=== PATIENT | female | born 1995 | race Caucasian/White ===

== ENCOUNTER 2021-11-20 08:35 | Emergency (ER) | payer OTHER, SELFPAY ==
[2021-11-20 08:52] VITALS: BP 150/111; PULSE 111; RESP 18; TEMP 36.7; O2SAT 98; BMI 36.4
--- NOTE | 2021-11-20 09:08 | CT_ITS ---
WS: [id number] CT kidney stone 06354 REASON FOR EXAM: flank pain IV CONTRAST ADMINISTERED: Noncontrast TOTAL EXAM DLP: 1769.[address] scans at [facility] use at least one of these dose optimization techniques: automat ed exposure control; mA and/or kV adjustment per patient size (includes targeted exams where dose is matched to clinical indication); or iterative reconstruction. FINDINGS: Liver is mildly enlarged and fatty infiltrated. Pancreas and spleen are unremarkable. Right kidney normal. Moderate obstructive uropathy of the left kidney secondary to 4 mm calculus at the left ureteropelvic junction. There are 2 small adjacent calculi in the lower pole of the left kidney with the grouping measuring 8 x 2 mm. No abdominal mass or adenopathy. No focal fluid collection or free fluid. Normal appendix. PELVIS: No mass or adenopathy. No distal ureteral calculi or bladder calculus. CT/CT kidney stone 41379 IMPRESSION: Fatty infiltration of the liver. Left obstructive uropathy secondary to left ureteral pelvic junction calculus a s above. Left intrarenal calculi as above.
--- NOTE | 2021-11-20 09:09 | ED_ITS ---
HPI - Female Genitourinary General: Chief complaint: Abdominal Pain Stated complaint: ABD pain and bleeding Time Seen by Provider: 11/20/21 08:58 History of Present Illness: Patient complains about left flank pain since yesterday. Patient currently on her menstrual cycle also. Patient has a history of PCOS. Patient denies any fever chills does feel nauseous when the pain occurs. [place] last [place] days. Patient denies any vaginal discharge. Associated symptoms: Deny abdominal pain, headache(s) or nausea Review of Systems Const: Denies: fever(s), chills or body aches Eyes: Denies: eye discomfort ENMT: Denies: throat pain Card: Denies: chest pain Resp: Denies: dyspnea GI: Denies: abdominal pain, nausea or vomiting : Reports: flank pain Skin/Breast: Denies: rash Neuro: Denies: headache(s) Psych: Denies: depression or suicidal ideation Physical Exam Const: COMMON NORMALS: no acute distress, patient oriented x3 and alert HENMT: COMMON NORMALS: normocephalic and external ears normal HEAD & SCALP: normocephalic EXTERNAL EAR: Yes external ears normal Eye: COMMON NORMALS: EOMs intact bilaterally Neck/C-Spine: COMMON NORMALS: no JVD Resp: COMMON NORMALS: normal respiratory effort and No use of accessory muscles Cardio: COMMON NORMALS: no JVD : COMMON NORMALS: No no CVA tenderness (Tenderness left flank with percussion.) BLADDER/KIDNEY EXAM: No no CVA tenderness (Tenderness left flank with percussion.) Back/Pelvis: COMMON NORMALS: negative for no CVA tenderness (Tenderness left flank with percussion.) Extremity: COMMON NORMALS: normal to inspection and full ROM Neuro: COMMON NORMALS: patient oriented x3 SENSORIUM/ORIENTATION: Yes alert Psych: COMMON NORMALS: mental status grossly normal Skin: COMMON NORMALS: no rashes or lesions noted GENERAL SKIN EXAM: no rashes or lesions noted Course Vital Signs: Vital signs: Vital Signs Temperature 98.1 F 11/20/21 08:52 Pulse Rate 111 H 11/20/21 08:52 Respiratory Rate 18 11/20/21 08:52 Blood Pressure 150/111 11/20/21 08:52 Pulse Oximetry 98 11/20/21 08:52 MDM - Female Medical Decision Making Patient arrives with left flank pain. She just flew in from [place] yesterday. Radiology studies reveal UVJ blockage left side. Obtaining the lab work and urine on her show that patient had a blood sugar 330. New onset diabetes is obvious diagnosis. Patient given 10 units IVP insulin sugar down to 180 now patient was given a liter of fluid because anion gap was high. Serum ketones were negative. Urine showed uric acid crystals 100+. 1+ bacteria. Discussed case with Dr. Ballard. Patient treated for new onset diabetes and UVJ stone. Bri woods is to follow-up in [place] first next week with primary care. Case management was also contacted to establish her with a provider and [place]. Lab Data : 11/20/21 09:19 11/20/21 09:19 Radiology Impressions Abdomen/Pelvis CT 11/20/21 09:08 IMPRESSION: Fatty infiltration of the liver. Left obstructive uropathy secondary to left ureteral pelvic junction calculus as above. Left intrarenal calculi as above. Laboratory Results WBC 14.1 10^3/uL (4.0-10.0) H 11/20/21 09:19 RBC 4.18 10^6/uL (4.1-5.3) 11/20/21 09:19 Hgb 12.6 g/dL (11.5-15.3) 11/20/21 09:19 Hct 36.6 % (37.0-47.0) L 11/20/21 09:19 MCV 87.6 fl (81-99) 11/20/21 09:19 MCH 30.1 pg (28.0-34.0) 11/20/21 09:19 MCHC 34.4 g/dL (30.0-36.0) 11/20/21 09:19 RDW 14.6 % (12.1-15.1) 11/20/21 09:19 Plt Count 285 10^3/cmm (130-400) 11/20/21 09:19 MPV 11.3 fL (7.4-10.4) H 11/20/21 09:19 Neut % (Auto) 75.7 % 11/20/21 09:19 Lymph % (Auto) 17.2 % 11/20/21 09:19 Nobles % (Auto) 5.1 % 11/20/21 09:19 Eos % (Auto) 0.9 % 11/20/21 09:19 Baso % (Auto) 0.5 % 11/20/21 09:19 Neut # (Auto) 10.65 10^3/uL (1.8-7.7) H 11/20/21 09:19 Lymph # (Auto) 2.4 10^3/uL (0.8-4.8) 11/20/21 09:19 Nobles # (Auto) 0.7 10^3/uL (0.2-0.9) 11/20/21 09:19 Eos # (Auto) 0.1 10^3/uL (0.0-0.8) 11/20/21 09:19 Baso # (Auto) 0.1 10^3/uL (0.0-0.1) 11/20/21 09:19 Nucleated RBC % (auto) 0 % 11/20/21 09:19 Nucleated RBCs # 0.0 /100WBC 11/20/21 09:19 Sodium 133 mmol/L (136-145) L 11/20/21 09:19 Potassium 4.1 mmol/L (3.5-5.1) 11/20/21 09:19 Chloride 96 mmol/L (98-107) L 11/20/21 09:19 Carbon Dioxide 15 mmol/L (22-29) L 11/20/21 09:19 Anion Gap 26.1 (5-19) H 11/20/21 09:19 BUN 12 mg/dL (6-20) 11/20/21 09:19 Creatinine 0.6 mg/dL (0.5-0.9) 11/20/21 09:19 GFR Calculation 119.0 mL/min (90-130) 11/20/21 09:19 Glucose 315 mg/dL (65-115) H 11/20/21 09:19 POC Glucose 185 mg/dL (70-110) H 11/20/21 13:11 Calculated Osmolality 288 mOsm/kg (285-295) 11/20/21 09:19 Calcium 9.6 mg/dL (8.5-10.5) 11/20/21 09:19 HCG, Qual Negative (Negative) 11/20/21 11:03 Urine Color Yellow (Yellow) 11/20/21 12:15 Urine Appearance Cloudy (CLEAR) 11/20/21 12:15 Urine pH 5 (5-7) 11/20/21 12:15 Ur Specific Hunker 1.025 (1.005-1.030) 11/20/21 12:15 Urine Protein Neg (Negative) 11/20/21 12:15 Urine Glucose (UA) 4+ (Normal) H 11/20/21 12:15 Urine Ketones 2+ (Negative) H 11/20/21 12:15 Urine Blood 3+ (Negative) H 11/20/21 12:15 Urine Nitrate Negative (Negative) 11/20/21 12:15 Urine Bilirubin Neg (Negative) 11/20/21 12:15 Urine Urobilinogen Neg mg/dL (Negative) 11/20/21 12:15 Ur Leukocyte Esterase Negative (Negative) 11/20/21 12:15 Urine RBC 40-50 /hpf (0-2) H 11/20/21 12:15 Urine WBC Rare /hpf (0-5) 11/20/21 12:15 Ur Squamous Epith Cells Rare /hpf (0-5) 11/20/21 12:15 Uric Acid Crystals >100 /hpf H 11/20/21 12:15 Amorphous Sediment Not Reportable 11/20/21 12:15 Urine Bacteria 1+ /hpf (NONE) H 11/20/21 12:15 Serum Ketones Negative (Negative) 11/20/21 11:03 Discharge Plan Discharge Patient Disposition: Home Clinical Impression: Diabetes mellitus, new onset, Calculus of ureterovesical junction (UVJ), Uric acid stone in urine Condition: Stable Prescriptions: New metformin 500 mg tablet 500 mg PO DAILY Qty: 7 0RF cephalexin 500 mg capsule 500 mg PO Q8H 7 Days Qty: 21 0RF hydrocodone-acetaminophen 5-325 mg tablet 1 tab PO TID PRN (Reason: pain) Qty: 14 0RF Discharge Orders: Discharge ED (Routine); Ordered 11/20/21 Ordered By: Teodoro Krause Discharge Diet: As Directed and Diabetic Discharge Activity: Increase activity as tolerated Patient Instructions: Diabetes and Diet, Kidney Stones (ED), Type 2 Diabetes in Adults: New Diagnosis (DC) Activity Restrictions/Additional Instructions: Follow-up with medical provider as directed. Take medications as prescribed. Return to the ER or your medical provider if condition worsens. Please read and understand discharge instructions. If any questions ask please. It is very important that you follow-up with your primary care provider or find one within the next week when you get back home to [place]. Have to have repeat lab work done. You also need to buy a glucometer and start checking your blood sugars in the chucking machine set up operator fasting and then later in afternoon after supper. You should try diligently to make sure your blood sugar in the evening stays below 200 if possible make sure you drink plenty of water follow-up here if any worsening conditions. Coding Level of Care Code ED Link Wire Fabric Machine Operator for Chg Fwd Exam Comprehensive
[2021-11-20 09:25] LABS: Basophils # 0.1 10^3/uL (0.0-0.1); Basophils % 0.5 %; Eosinophils # 0.1 10^3/uL (0.0-0.8); Eosinophils % 0.9 %; Hematocrit 36.6 % (37.0-47.0); Hemoglobin 12.6 g/dL (11.5-15.3); Lymphocytes # 2.4 10^3/uL (0.8-4.8); Lymphocytes % 17.2 %; Mean Corpuscular HGB Conc 34.4 g/dL (30.0-36.0); Mean Corpuscular Hemoglobin 30.1 pg (28.0-34.0); Mean Corpuscular Volume 87.6 fl (81-99); Mean Platelet Volume 11.3 fL (7.4-10.4); Monocytes # 0.7 10^3/uL (0.2-0.9); Monocytes % 5.1 %; Neutrophils # 10.65 10^3/uL (1.8-7.7); Neutrophils % 75.7 %; Nucleated Red Blood Cells % 0 %; Platelet Count 285 10^3/cmm (130-400); Red Blood Count 4.18 10^6/uL (4.1-5.3); Red Cell Distribution Width 14.6 % (12.1-15.1); White Blood Count 14.1 10^3/uL (4.0-10.0)
[2021-11-20 10:01] LABS: Blood Urea Nitrogen 12 mg/dL (6-20); Calcium 9.6 mg/dL (8.5-10.5); Carbon Dioxide 15 mmol/L (22-29); Chloride 96 mmol/L (98-107); Glucose 315 mg/dL (65-115); Osmolality Calculated 288 mOsm/kg (285-295); Sodium 133 mmol/L (136-145)
[2021-11-20 10:03] LABS: Anion Gap 26.1 (5-19); Potassium 4.1 mmol/L (3.5-5.1)
[2021-11-20] MEDS: sodium chloride 0.9% 1,000 ML 999 ML IV ×2 (10:17→12:12)
[2021-11-20] MEDS: ketorolac 30 mg/mL INJ IVP (10:18)
[2021-11-20] MEDS: ondansetron 2 mg/ML SDV 2 mL 4 MG IVP (10:19)
[2021-11-20 11:45] LABS: HCG, Serum Qual Negative (Negative)
[2021-11-20 12:02] LABS: Ketone (Acetest) Serum Negative (Negative)
[2021-11-20] MEDS: insulin regular-human 100 units/1 mL 10 UNIT IVP (12:12)
[2021-11-20 12:42] LABS: Add Urine Microscopic? YES; Bacteria Urine 1+ /hpf; Bilirubin Urine Neg (Negative); Blood Urine 3+ (Negative); Glucose Urine UA 4+ (Normal); Ketones Urine 2+ (Negative); Leukocyte Esterase Urine Negative (Negative); Nitrate Urine Negative (Negative); Protein Urine Neg (Negative); RBC Urine 40-50 /hpf (0-2); Specific Gravity, Urine 1.025 (1.005-1.030); Squamous Epithelial Cell Urine RARE /hpf (0-5); Urine Appearance Cloudy (CLEAR); Urine Color Yellow (Yellow); Urobilinogen Urine Neg (Negative); WBC Urine RARE /hpf (0-5); pH Urine 5 (5-7)
[2021-11-20 12:43] LABS: Add Urine Culture? Yes; Uric Acid Crystals Urine >100 /hpf
[2021-11-20 13:17] LABS: Glucose Point of Care 185 mg/dL (70-110)
[2021-11-20 14:02] VITALS: BP 116/77; PULSE 94; RESP 14; O2SAT 98
--- NOTE | 2021-11-25 13:39 | DCPLANNER ---
architectural practice manager had message to help patient schedule a follow up appointment with an urologist where patient lives. architectural practice manager called phone number [phone], called patient and unable to speak with patient and unable to leave a voicemail.
== END 2021-11-20 13:58 | disposition home or self-care (01) ==
PROVIDERS: Emergency Provider Nurse Practitioner Family
DX: N20.1 Calculus of ureter (principal); E11.9 Type 2 diabetes mellitus without complications
CPT/HCPCS: 36416; 74176; 80048; 81001; 82009; 82962; 84703; 85025; 87077; 87086; 87186; 96361; 96374; 96375; 99284; J1815; J1885; J2405; J7030

== ENCOUNTER 2022-12-03 09:36 | Emergency (ER) | payer SELFPAY ==
[2022-12-03 09:49] VITALS: BP 147/72; PULSE 93; RESP 15; O2SAT 97
[2022-12-03 09:57] VITALS: BP 147/72; PULSE 96; RESP 16; O2SAT 98
--- NOTE | 2022-12-03 09:59 | CT_ITS ---
WS: [id number] CT ABDOMEN PELVIS TECHNIQUE: Noncontrast CT of the abdomen and pelvis with coronal and sagittal reformatted images. CLINICAL INFORMATION: left flank pain COMPARISON: CT November 20, 2021 DLP: 840.[address] scans at [facility] use at least one of these dose optimization techniques: automated e xposure control; mA and/or kV adjustment per patient size (includes targeted exams where dose is matc hed to clinical indication); or iterative reconstruction. FINDINGS: Lung bases are well aerated. Normal noncontrast liver and spleen. Normal GE junction. Proximal stomac h is normal. Normal noncontrast gallbladder. Noncontrast pancreas appears normal. Adrenal glands are normal. Normal caliber abdominal aorta. No hydronephrosis in the RIGHT kidney. Mild LEFT hydronephrosis with LEFT ureterectasis. Obstructing calculus in the distal 1/3rd LEFT ureter at the pelvic inlet measuring 5 mm. Distal LEFT ureter remai ns patent. Normal sigmoid colon. No evidence of high-grade small or large bowel obstruction. Normal appendix in the RIGHT lower quadrant. CT/CT kidney stone [id number] IMPRESSION: 1. Mild LEFT hydronephrosis with obstructing calculus distal one third ureter measuring 5 mm. 2. No other acute findings. Notified NUNO Haskins at 12/03/2022 11:33 AM.
--- NOTE | 2022-12-03 10:00 | ED_ITS ---
Documented by User: NUNO Haskins 12/04/22 07:06 HPI - Back Pain/Injury General: Chief Complaint: Back Pain/Injury Stated Complaint: Abd Pain and lower back pain Time Seen by Provider: 12/03/22 09:40 History of Present Illness: Patient is a 27-year-old female comes to the ED with left flank pain. Past history of left kidney stone which she passed over 2 weeks ago. Symptoms started earlier this morning right when she woke up. She says pain was very intense and has gotten a little better now here in the ED. She rates the pain currently a 6 out of 10. She endorses having some nausea as well. She says this pain feels just like her past kidney stone. Patient just moved to [place] and does not have a primary care physician here. Denies any dysuria, hematuria, fevers, abdominal pain, vomiting. Associated symptoms: Reports nausea; Deny abdominal pain, chills, dysuria, fatigue, fever(s), hematuria or vomiting Review of Systems Const: Denies: fever(s), chills or fatigue Eyes: Denies: change in vision or eye discomfort ENMT: Denies: throat pain, odynophagia, nasal discharge or nasal congestion Card: Denies: chest pain, palpitations, edema, swelling of feet/ankles, dyspnea on exertion or orthopnea Resp: Denies: dyspnea, productive cough or non-productive cough GI: Reports: nausea; Denies: abdominal pain, vomiting, diarrhea, constipation or hematochezia : Reports: flank pain (Left flank pain); Denies: dysuria or hematuria Musc: Denies: neck pain, back pain or extremity swelling Skin/Breast: Denies: rash or new lesions Neuro: Denies: headache(s), numbness in extremities or weakness in extremities [facility], LAT[facility] ED PFSH: Medical History (Updated 12/04/22 @ 07:05 by NUNO Haskins) Anemia Diabetes History of kidney stones No pertinent family history Physical Exam Const: COMMON NORMALS: patient oriented x3 HENMT: COMMON NORMALS: normocephalic HEAD & SCALP: normocephalic MOUTH: Normal oral and palatal mucosa present THROAT: posterior oropharynx normal and uvula midline Neck/C-Spine: COMMON NORMALS: supple GENERAL: Yes normal visual inspection Resp: COMMON NORMALS: normal respiratory effort, No retractions, No use of accessory muscles and clear to auscultation bilaterally AUSCULTATION: clear to auscultation bilaterally Cardio: COMMON NORMALS: regular rate, regular rhythm, S1 normal heart sound present, S2 normal heart sound present, No gallops present (Cardio), No clicks present (Cardio), No murmurs present (Cardio) and Peripheral pulses 2+ throughout RATE: regular rate RHYTHM: regular rhythm HEART SOUNDS: S1 normal heart sound present and S2 normal heart sound present PERIPHERAL P ULSES: Peripheral pulses 2+ throughout GI: COMMON NORMALS: Normal to inspection, nondistended, normoactive bowel sounds present, Soft to palpation, non-tender and no masses PALPATION: Yes Soft to palpation : BLADDER/KIDNEY EXAM: Yes CVA tenderness on the left Back/Pelvis: GENERAL BACK: Yes CVA tenderness Extremity: COMMON NORMALS: normal to inspection Neuro: COMMON NORMALS: patient oriented x3 GAIT: Yes Normal gait present Skin: GENERAL SKIN EXAM: dry skin Course Vital Signs: Vital signs: Vital Signs Pulse Rate 94 12/03/22 12:29 Respiratory Rate 16 12/03/22 12:29 Blood Pressure 132/80 12/03/22 12:29 Pulse Oximetry 97 12/03/22 12:29 Oxygen Delivery Me thod 12/03/22 10:30 MDM - Back Pain/Injury Medical Decision Making Patient is a 27-year-old female comes to the ED with left flank pain. Past history of anemia, left kidney stone which she passed over 2 weeks ago. Symptoms started earlier this morning right when she woke up. She says pain was very intense and has gotten a little better now here in the ED. She rates the pain currently a 6 out of 10. She endorses having some nausea as well. She says this pain feels just like her past kidney stone. Denies any dysuria, hematuria, fevers, abdominal pain, vomiting. Vitals are stable. Exam showed a nontoxic appearing female in no acute distress. She does have some left CVA tenderness. Hemoglobin of 8.5 and the rest of CBC and CMP were unremarkable. UA was suspicious for possible UTI as well. CT of abdomen pelvis showed a 5 mm stone in distal third of the ureter. Patient's symptoms improved after IV fluids, nausea meds and pain meds. I placed an order with case management for patient to be referred to primary care physician to get established with since she just moved here to [place]. I also placed an order with case management for patient to be referred to urologist for follow-up. She was stable for discharge home and diagnosed with left-sided kidney stone and anemia. Strict return to ED precautions given. She was sent home with prescription for pain medicine, nausea med, antibiotic and Flomax. Patient understood and agreed with plan. Labs I reviewed the patient's lab results. 12/03/22 10:10 12/03/22 10:10 Radiology Impressions Abdomen/Pelvis CT 12/03/22 09:59 IMPRESSION: 1. Mild LEFT hydronephrosis with obstructing calculus distal one third ureter measuring 5 mm. 2. No other acute findings. Notified NUNO Haskins at 12/03/2022 11:33 AM. Laboratory Results WBC 10.5 10^3/uL (4.0-10.0) H 12/03/22 10:10 RBC 4.02 10^6/uL (4.1-5.3) L 12/03/22 10:10 Hgb 8.5 g/dL (11.5-15.3) L 12/03/22 10:10 Hct 29.7 % (37.0-47.0) L 12/03/22 10:10 MCV 73.9 fl (81-99) L 12/03/22 10:10 MCH 21.1 pg (28.0-34.0) L 12/03/22 10:10 MCHC 28.6 g/dL (30.0-36.0) L 12/03/22 10:10 RDW 17.6 % (12.1-15.1) H 12/03/22 10:10 Plt Count 444 10^3/cmm (130-400) H 12/03/22 10:10 MPV 9.3 fL (7.4-10.4) 12/03/22 10:10 Neut % (Auto) 78.0 % 12/03/22 10:10 Lymph % (Auto) 14.7 % 12/03/22 10:10 Colbert % (Auto) 6.1 % 12/03/22 10:10 Eos % (Auto) 0.5 % 12/03/22 10:10 Baso % (Auto) 0.4 % 12/03/22 10:10 Neut # (Auto) 8.23 10^3/uL (1.8-7.7) H 12/03/22 10:10 Lymph # (Auto) 1.6 10^3/uL (0.8-4.8) 12/03/22 10:10 Colbert # (Auto) 0.6 10^3/uL (0.2-0.9) 12/03/22 10:10 Eos # (Auto) 0.1 10^3/uL (0.0-0.8) 12/03/22 10:10 Baso # (Auto) 0.0 10^3/uL (0.0-0.1) 12/03/22 10:10 Nucleated RBC % (auto) 0 % 12/03/22 10:10 Nucleated RBCs # 0.0 /100WBC 12/03/22 10:10 Sodium 141 mmol/L (136-145) 12/03/22 10:10 Potassium 4.4 mmol/L (3.5-5.1) 12/03/22 10:10 Chloride 103 mmol/L (98-107) 12/03/22 10:10 Carbon Dioxide 23 mmol/L (22-29) 12/03/22 10:10 Anion Gap 19.4 (5-19) H 12/03/22 10:10 BUN 15 mg/dL (6-20) 12/03/22 10:10 Creatinine 0.7 mg/dL (0.5-0.9) 12/03/22 10:10 GFR Calculation 98.9 mL/min (90-130) 12/03/22 10:10 Glucose 99 mg/dL (65-115) 12/03/22 10:10 Calculated Osmolality 293 mOsm/kg (285-295) 12/03/22 10:10 Calcium 9.2 mg/dL (8.5-10.5) 12/03/22 10:10 Total Bilirubin 0.6 mg/dL (0.15-1.2) 12/03/22 10:10 AST 13 U/L (0-32) 12/03/22 10:10 ALT 15 U/L (0-33) 12/03/22 10:10 Alkaline Phosphatase 62 U/L (35-105) 12/03/22 10:10 Total Protein 7.7 g/dL (6.6-8.7) 12/03/22 10:10 Albumin 4.5 g/dL (3.5-5.2) 12/03/22 10:10 Globulin 3.2 g/dL (1.3-4.6) 12/03/22 10:10 Lipase 15 U/L (13-60) 12/03/22 10:10 HCG, Qual Negative (Negative) 12/03/22 10:10 Urine Color Yellow (Yellow) 12/03/22 10:16 Urine Appearance Cloudy (CLEAR) A 12/03/22 10:16 Urine pH 5 (5-7) 12/03/22 10:16 Ur Specific [place] 1.025 (1.005-1.030) 12/03/22 10:16 Urine Protein 1+ (Negative) H 12/03/22 10:16 Urine Glucose (UA) Norm (Normal) 12/03/22 10:16 Urine Ketones Negative (Negative) 12/03/22 10:16 Urine Blood 3+ (Negative) H 12/03/22 10:16 Urine Nitrate Negative (Negative) 12/03/22 10:16 Urine Bilirubin Neg (Negative) 12/03/22 10:16 Urine Urobilinogen Neg mg/dL (Negative) 12/03/22 10:16 Ur Leukocyte Esterase 2+ (Negative) H 12/03/22 10:16 Urine RBC >100 /hpf (0-2) H 12/03/22 10:16 Urine WBC 55-80 /hpf (0-5) H 12/03/22 10:16 Ur Squamous Epith Cells 25-40 /hpf (0-5) H 12/03/22 10:16 Amorphous Sediment Not Reportable 12/03/22 10:16 Urine Bacteria 2+ /hpf (NONE) H 12/03/22 10:16 Urine Mucus 1+ /hpf 12/03/22 10:16 Discharge Plan Discharge Patient Disposition: Home Clinical Impression: Kidney stone on left side Anemia Qualifiers: Anemia type: iron deficiency Condition: Stable Prescriptions: New tamsulosin 0.4 mg capsule 0.4 mg PO DAILY Qty: 20 0RF Rx Instructions: Take 1 tablet daily p.o. until you passed kidney stone. Naprosyn 500 mg tablet 500 mg PO BID PRN (Reason: pain) Qty: 20 0RF ondansetron 4 mg tablet,disintegrating 4 mg PO Q8H PRN (Reason: nausea and vomiting) Qty: 20 0RF ciprofloxacin HCl 500 mg tablet 500 mg PO BID 7 Days Qty: 14 0RF No Action hydroxyzine HCl 50 mg Tablet 50 mg PO TID PRN (Reason: Anxiety) Focalin 10 mg Tablet 10 mg PO DAILY Vitamin C 500 mg Tablet 500 mg PO DAILY Iron (ferrous sulfate) 325 mg (65 mg iron) Tablet 325 mg PO DAILY metformin 1,000 mg Tablet 1,000 mg PO BID Wellbutrin XL 300 mg Tablet Extended Release 24 Hr 300 mg PO QAM Multi Vitamin 9 mg iron/15 mL Liquid 15 ml PO DAILY Discharge Orders: Discharge ED (Routine); Ordered 12/03/22 Ordered By: Randell Narayanan Discharge Diet: Regular Discharge Activity: Increase activity as tolerated Patient Instructions: Kidney Stones (ED), How to Strain Your Urine (ED), Anemia (ED), Opioid Safety Activity Restrictions/Additional Instructions: Follow-up with medical provider as directed. Case management should contact you in the next several days to set up an appointment with a primary care physician and a urologist for follow-up on kidney stones. Recheck hemoglobin level at your next doctor's appointment or sooner if you are having any other symptoms or bleeding. Take medications as prescribed. Return to the ER or your medical provider if condition worsens. Please read and understand discharge instructions. Thank you for choosing [facility] for your healthcare needs today. Please realize this is an emergency room and that we are providing you with a medical screening exam and this may not be complete and all inclusive of all the testing and or work up that you may need to determine your ailment or severity of your illness. It is very important that you follow up as instructed or that you return to the Emergency Department should you have concerns or if your condition changes or worsens in any way. Coding Level of Care Code ED Biology Lecturer for Kavin Fwd Documented by User: Connor Mederos DO 12/04/22 07:34 HPI - Back Pain/Injury General: Chief Complaint: Back Pain/Injury Stated Complaint: Abd Pain and lower back pain Time Seen by Provider: 12/03/22 09:40 [facility] ED PFS: Medical History (Updated 12/04/22 @ 07:05 by NUNO Haskins) Anemia Diabetes History of kidney stones No pertinent family history Course Vital Signs: Vital signs: Vital Signs Pulse Rate 94 12/03/22 12:29 Respiratory Rate 16 12/03/22 12:29 Blood Pressure 132/80 12/03/22 12:29 Pulse Oximetry 97 12/03/22 12:29 Oxygen Delivery Me thod 12/03/22 10:30 MDM - Back Pain/Injury Medical Decision Making Patient is a 27-year-old female comes to the ED with left flank pain. Past history of anemia, left kidney stone which she passed over 2 weeks ago. Symptoms started earlier this morning right when she woke up. She says pain was very intense and has gotten a little better now here in the ED. She rates the p ain currently a 6 out of 10. She endorses having some nausea as well. She says this pain feels just like her past kidney stone. Denies any dysuria, hematuria, fevers, abdominal pain, vomiting. Vitals are stable. Exam showed a nontoxic appearing female in no acute distress. She does have some left CVA tenderness. Hemoglobin of 8.5 and the rest of CBC and CMP were unremarkable. UA was suspic ious for possible UTI as well. CT of abdomen pelvis showed a 5 mm stone in distal third of the ureter. Patient's symptoms improved after IV fluids, nausea meds and pain meds. I placed an order with case management for patient to be referred to primary care physician to get established with since she just moved here to [place]. I also placed an order with case management for patient to be referred to urologist for follow-up. She was stable for discharge home and diagnosed with left-sided kidney stone and anemia. Strict return to ED precautions given. She was sent home with prescription for pain medicine, nausea med, antibiotic and Flomax. Patient understood and agreed with plan. Chart reviewed and patient discussed with midlevel. Agree with assessment and plan. Labs 12/03/22 10:10 12/03/22 10:10 Radiology Impressions Abdomen/Pelvis CT 12/03/22 09:59 IMPRESSION: 1. Mild LEFT hydronephrosis with obstructing calculus distal one third ureter measuring 5 mm. 2. No other acute findings. Notified NUNO Haskins at 12/03/2022 11:33 AM. Laboratory Results WBC 10.5 10^3/uL (4.0-10.0) H 12/03/22 10:10 RBC 4.02 10^6/uL (4.1-5.3) L 12/03/22 10:10 Hgb 8.5 g/dL (11.5-15.3) L 12/03/22 10:10 Hct 29.7 % (37.0-47.0) L 12/03/22 10:10 MCV 73.9 fl (81-99) L 12/03/22 10:10 MCH 21.1 pg (28.0-34.0) L 12/03/22 10:10 MCHC 28.6 g/dL (30.0-36.0) L 12/03/22 10:10 RDW 17.6 % (12.1-15.1) H 12/03/22 10:10 Plt Count 444 10^3/cmm (130-400) H 12/03/22 10:10 MPV 9.3 fL (7.4-10.4) 12/03/22 10:10 Neut % (Auto) 78.0 % 12/03/22 10:10 Lymph % (Auto) 14.7 % 12/03/22 10:10 Colbert % (Auto) 6.1 % 12/03/22 10:10 Eos % (Auto) 0.5 % 12/03/22 10:10 Baso % (Auto) 0.4 % 12/03/22 10:10 Neut # (Auto) 8.23 10^3/uL (1.8-7.7) H 12/03/22 10:10 Lymph # (Auto) 1.6 10^3/uL (0.8-4.8) 12/03/22 10:10 Colbert # (Auto) 0.6 10^3/uL (0.2-0.9) 12/03/22 10:10 Eos # (Auto) 0.1 10^3/uL (0.0-0.8) 12/03/22 10:10 Baso # (Auto) 0.0 10^3/uL (0.0-0.1) 12/03/22 10:10 Nucleated RBC % (auto) 0 % 12/03/22 10:10 Nucleated RBCs # 0.0 /100WBC 12/03/22 10:10 Sodium 141 mmol/L (136-145) 12/03/22 10:10 Potassium 4.4 mmol/L (3.5-5.1) 12/03/22 10:10 Chloride 103 mmol/L (98-107) 12/03/22 10:10 Carbon Dioxide 23 mmol/L (22-29) 12/03/22 10:10 Anion Gap 19.4 (5-19) H 12/03/22 10:10 BUN 15 mg/dL (6-20) 12/03/22 10:10 Creatinine 0.7 mg/dL (0.5-0.9) 12/03/22 10:10 GFR Calculation 98.9 mL/min (90-130) 12/03/22 10:10 Glucose 99 mg/dL (65-115) 12/03/22 10:10 Calculated Osmolality 293 mOsm/kg (285-295) 12/03/22 10:10 Calcium 9.2 mg/dL (8.5-10.5) 12/03/22 10:10 Total Bilirubin 0.6 mg/dL (0.15-1.2) 12/03/22 10:10 AST 13 U/L (0-32) 12/03/22 10:10 ALT 15 U/L (0-33) 12/03/22 10:10 Alkaline Phosphatase 62 U/L (35-105) 12/03/22 10:10 Total Protein 7.7 g/dL (6.6-8.7) 12/03/22 10:10 Albumin 4.5 g/dL (3.5-5.2) 12/03/22 10:10 Globulin 3.2 g/dL (1.3-4.6) 12/03/22 10:10 Lipase 15 U/L (13-60) 12/03/22 10:10 HCG, Qual Negative (Negative) 12/03/22 10:10 Urine Color Yellow (Yellow) 12/03/22 10:16 Urine Appearance Cloudy (CLEAR) A 12/03/22 10:16 Urine pH 5 (5-7) 12/03/22 10:16 Ur Specific [place] 1.025 (1.005-1.030) 12/03/22 10:16 Urine Protein 1+ (Negative) H 12/03/22 10:16 Urine Glucose (UA) Norm (Normal) 12/03/22 10:16 Urine Ketones Negative (Negative) 12/03/22 10:16 Urine Blood 3+ (Negative) H 12/03/22 10:16 Urine Nitrate Negative (Negative) 12/03/22 10:16 Urine Bilirubin Neg (Negative) 12/03/22 10:16 Urine Urobilinogen Neg mg/dL (Negative) 12/03/22 10:16 Ur Leukocyte Esterase 2+ (Negative) H 12/03/22 10:16 Urine RBC >100 /hpf (0-2) H 12/03/22 10:16 Urine WBC 55-80 /hpf (0-5) H 12/03/22 10:16 Ur Squamous Epith Cells 25-40 /hpf (0-5) H 12/03/22 10:16 Amorphous Sediment Not Reportable 12/03/22 10:16 Urine Bacteria 2+ /hpf (NONE) H 12/03/22 10:16 Urine Mucus 1+ /hpf 12/03/22 10:16 Discharge Plan Discharge Patient Disposition: Home Clinical Impression: Kidney stone on left side Anemia Qualifiers: Anemia type: iron deficiency Condition: Stable Prescriptions: New tamsulosin 0.4 mg capsule 0.4 mg PO DAILY Qty: 20 0RF Rx Instructions: Take 1 tablet daily p.o. until you passed kidney stone. Naprosyn 500 mg tablet 500 mg PO BID PRN (Reason: pain) Qty: 20 0RF ondansetron 4 mg tablet,disintegrating 4 mg PO Q8H PRN (Reason: nausea and vomiting) Qty: 20 0RF ciprofloxacin HCl 500 mg tablet 500 mg PO BID 7 Days Qty: 14 0RF No Action hydroxyzine HCl 50 mg Tablet 50 mg PO TID PRN (Reason: Anxiety) Focalin 10 mg Tablet 10 mg PO DAILY Vitamin C 500 mg Tablet 500 mg PO DAILY Iron (ferrous sulfate) 325 mg (65 mg iron) Tablet 325 mg PO DAILY metformin 1,000 mg Tablet 1,000 mg PO BID Wellbutrin XL 300 mg Tablet Extended Release 24 Hr 300 mg PO QAM Multi Vitamin 9 mg iron/15 mL Liquid 15 ml PO DAILY Discharge Orders: Discharge ED (Routine); Ordered 12/03/22 Ordered By: Randell Narayanan Discharge Diet: Regular Discharge Activity: Increase activity as tolerated Patient Instructions: Kidney Stones (ED), How to Strain Your Urine (ED), Anemia (ED), Opioid Safety Activity Restrictions/Additional Instructions: Follow-up with medical provider as directed. Case management should contact you in the next several days to set up an appointment with a primary care physician and a urologist for follow-up on kidney stones. Recheck hemoglobin level at your next doctor's appointment or sooner if you are having any other symptoms or bleeding. Take medications as prescribed. Return to the ER or your medical provider if condition worsens. Please read and understand discharge instructions. Thank you for choosing [facility] for your healthcare needs today. Please realize this is an emergency room and that we are providing you with a medical screening exam and this may not be complete and all inclusive of all the testing and or work up that you may need to determine your ailment or severity of your illness. It is very important that you follow up as instructed or that you return to the Emergency Department should you have concerns or if your condition changes or worsens in any way. Coding Level of Care Code ED Biology Lecturer for Kavin Aguayo
[2022-12-03 10:17] LABS: Basophils % 0.4 %; Eosinophils # 0.1 10^3/uL (0.0-0.8); Eosinophils % 0.5 %; Hematocrit 29.7 % (37.0-47.0); Hemoglobin 8.5 g/dL (11.5-15.3); Lymphocytes # 1.6 10^3/uL (0.8-4.8); Lymphocytes % 14.7 %; Mean Corpuscular HGB Conc 28.6 g/dL (30.0-36.0); Mean Corpuscular Hemoglobin 21.1 pg (28.0-34.0); Mean Corpuscular Volume 73.9 fl (81-99); Mean Platelet Volume 9.3 fL (7.4-10.4); Monocytes # 0.6 10^3/uL (0.2-0.9); Monocytes % 6.1 %; Neutrophils # 8.23 10^3/uL (1.8-7.7); Nucleated Red Blood Cells % 0 %; Platelet Count 444 10^3/cmm (130-400); Red Blood Count 4.02 10^6/uL (4.1-5.3); Red Cell Distribution Width 17.6 % (12.1-15.1); White Blood Count 10.5 10^3/uL (4.0-10.0)
[2022-12-03] MEDS: ondansetron 2 mg/ML SDV 2 mL 4 MG IVP (10:26)
[2022-12-03] MEDS: sodium chloride 0.9% 500 ML 999 ML IV (10:26)
[2022-12-03] MEDS: morphine 4 mg/mL SDV 1 mL IVP (10:27)
[2022-12-03 10:30] VITALS: BP 132/80; PULSE 94; RESP 16; O2SAT 97
[2022-12-03 10:47] LABS: HCG, Serum Qual Negative (Negative)
[2022-12-03 10:48] LABS: Alanine Aminotransferase 15 U/L (0-33); Albumin Level 4.5 g/dL (3.5-5.2); Alkaline Phosphatase 62 U/L (35-105); Anion Gap 19.4 (5-19); Aspartate Amino Transferase 13 U/L (0-32); Blood Urea Nitrogen 15 mg/dL (6-20); Calcium 9.2 mg/dL (8.5-10.5); Carbon Dioxide 23 mmol/L (22-29); Chloride 103 mmol/L (98-107); Globulin 3.2 g/dL (1.3-4.6); Glomerular Filtration Rate 98.9 mL/min (90-130); Glucose 99 mg/dL (65-115); Lipase 15 U/L (13-60); Osmolality Calculated 293 mOsm/kg (285-295); Potassium 4.4 mmol/L (3.5-5.1); Sodium 141 mmol/L (136-145); Total Bilirubin 0.6 mg/dL (0.15-1.2); Total Protein 7.7 g/dL (6.6-8.7)
[2022-12-03 11:08] LABS: Specific Gravity, Urine 1.025 (1.005-1.030); Urine Appearance Cloudy (CLEAR); Urine Color Yellow (Yellow); pH Urine 5 (5-7)
[2022-12-03 11:09] LABS: Add Urine Microscopic? YES; Bilirubin Urine Neg (Negative); Blood Urine 3+ (Negative); Glucose Urine UA Norm (Normal); Ketones Urine Negative (Negative); Leukocyte Esterase Urine 2+ (Negative); Nitrate Urine Negative (Negative); Protein Urine 1+ (Negative); Urobilinogen Urine Neg (Negative)
[2022-12-03 11:10] LABS: RBC Urine >100 /hpf (0-2)
[2022-12-03 11:11] LABS: Add Urine Culture? No; Bacteria Urine 2+ /hpf; Mucus Urine 1+ /hpf; Squamous Epithelial Cell Urine 25-40 /hpf (0-5); WBC Urine 55-80 /hpf (0-5)
[2022-12-03] MEDS: ketorolac 30 mg/mL INJ IVP (12:18)
[2022-12-03] MEDS: tamsulosin 0.4 mg Capsule PO (12:19)
[2022-12-03 12:29] VITALS: BP 132/80; PULSE 94; RESP 16; O2SAT 97
--- NOTE | 2022-12-04 11:22 | DCPLANNER ---
Addendum entered by Gladis Egan 12/09/22 08:31: Patient had a follow up appointment scheduled with urology - patient did attend appointment Original Note: manager field investigations had message to schedule a follow up appointment for patient with urology. manager field investigations sent patients information to the front office staff at urology. Patients information will be printed and reviewed. Clinic will call patient with appointment information.
== END 2022-12-03 12:31 | disposition home or self-care (01) ==
PROVIDERS: Emergency Provider Physician Assistant
DX: N13.2 Hydronephrosis with renal and ureteral calculous obstruction (principal); D50.9 Iron deficiency anemia, unspecified; Z79.84 Long term (current) use of oral hypoglycemic drugs; E11.9 Type 2 diabetes mellitus without complications; Z87.442 Personal history of urinary calculi
CPT/HCPCS: 36415; 74176; 80053; 81001; 83690; 84703; 85025; 96361; 96374; 96375; 99285; J1885; J2270; J2405; J7040

== ENCOUNTER 2022-12-08 13:45 | Outpatient (CLI) | payer SELFPAY ==
--- NOTE | 2022-12-08 13:54 | XR_ITS ---
WS: [id number] XR KUB [id number] REASON FOR EXAM: STONE FINDINGS: This examination excludes the upper poles of the kidneys. No urinary tract calculi are identified. (Previous CT scan 12/03/2022 demonstrated distal left uretera l calculus inferior sacrum level.) No other significant findings. XR/XR KUB [id number] IMPRESSION: No urinary tract calculi identified as above.
== END 2022-12-08 13:46 | disposition home or self-care (01) ==
PROVIDERS: Visit Provider Urology
DX: N20.0 Calculus of kidney (principal)
CPT/HCPCS: 74018; 81003; 87086

== ENCOUNTER 2022-12-23 15:10 | Outpatient (CLI) | payer SELFPAY ==
--- NOTE | 2022-12-23 16:08 | XRR_ITS ---
PROCEDURE INFORMATION: Exam: XR Abdomen Exam date and time: 12/23/2022 4:09 PM Age: 27 years old Clinical indication: Condition or disease; Kidney or ureter condition; Calculus (stone) in kidney; Additional info: Stones, kub @ [facility] on 12/23/22 @3:15pm, appt to follow; F/u kidney stones. History of ovarian cyst removed. TECHNIQUE: Imaging protocol: Radiologic exam of the abdomen. Views: Frontal supine view of the abdomen. 1 View. COMPARISON: OT XR KUB [id number] 12/08/2022 1:59 PM FINDINGS: Gastrointestinal tract: Normal. No bowel dilation. Organs: There are no visible calculi within the kidneys or ureters. Vasculature: Tiny phleboliths are noted in the pelvis. Bones/joints: Unremarkable. XR/XR KUB [id number] IMPRESSION: No visible calculus in the urinary system.
== END 2022-12-23 15:11 | disposition home or self-care (01) ==
LOC: RAD 15:15
PROVIDERS: Visit Provider Urology
DX: N20.1 Calculus of ureter (principal)
CPT/HCPCS: 74018; 81003

== ENCOUNTER 2023-01-13 15:00 | Outpatient (CLI) | payer SELFPAY ==
--- NOTE | 2023-01-13 15:13 | XR_ITS ---
WS: [id number] KUB, AP view, Clinical Data: STONES Comparison: KUB, 12/23/2022 Findings: No abnormal intraabdominal masses or calcifications are seen. There is no dilatated small bowel or ev idence of obstruction. There is minimal scattered air in the colon. XR/XR KUB [id number] Impression: Negative KUB.
== END 2023-01-13 15:01 | disposition home or self-care (01) ==
PROVIDERS: PCP Urology; Visit Provider Urology
DX: N12 Tubulo-interstitial nephritis, not specified as acute or chronic (principal)
CPT/HCPCS: 74018

== ENCOUNTER → 2023-01-28 11:10 | Outpatient (BNVA) | payer SELFPAY | PROVIDERS: PCP Urology; Visit Provider Family Medicine | DX: D64.9 Anemia, unspecified (principal); E11.9 Type 2 diabetes mellitus without complications | CPT/HCPCS: 80061; 82607; 82728; 82746; 83036; 83550; 85025 ==

== ENCOUNTER 2023-02-04 17:30 | Emergency (ER) | payer SELFPAY ==
--- NOTE | 2023-02-04 17:36 | W.ED.DENTAL ---
HPI - Dental/Oral General: Chief complaint: Dental/Oral Stated complaint: Dental PAin Time Seen by Provider: 02/04/23 17:36 Source: patient Mode of arrival: ambulatory Limitations: no limitations History of Present Illness: Patient is a 27-year-old female presents to ED today with a complaint of left upper molar dental pain and possible abscess. She states she felt something bust open the other day and had a foul taste in her mouth. She feels like the left side of her face is swollen. She has not noticed any redness or warmth to the face. She is not having any neck pain, swelling. She is eating, drinking, controlling secretions, swallowing, and speaking normally. No fevers. MD Complaint: tooth pain Teeth map: 1. Onset (ago): day(s) Duration: constant Severity: moderate Relieving factors: nothing Exacerbating factors: nothing Associated symptoms: Reports other (reports facial swelling); Denies ear or mastoid pain, fever(s) or odynophagia Treatment prior to arrival: none Review of Systems Const: Denies: fever(s), chills, body aches, fatigue or malaise ENMT: Reports: dental pain and sinus pain (L sided facial pain/swelling); Denies: throat pain, odynophagia, mouth pain, swelling of lips/tongue, oral sores, ear or mastoid pain, nasal discharge, nasal congestion or post nasal drip Card: Denies: chest pain Resp: Denies: dyspnea GI: Denies: nausea or vomiting Musc: Denies: neck pain Skin/Breast: Denies: rash Neuro: Denies: headache(s) PFS ED PFSH: Medical History ADD (attention deficit disorder) Anemia Depression Diabetes History of kidney stones Psychiatric care Surgical History History of tonsillectomy and adenoidectomy S/P removal of ovarian cyst Family History Mother Hypertension Father , at age 45 Cancer pancreatic Grandmother Cancer breast Grandfather Stroke Denies family history of CAD (coronary artery disease) Chronic kidney disease (CKD) Social History (Reviewed 02/04/23 @ 18:14 by JERROD Cheema Smoking and tobacco status: former smoker Quit status (tobacco): has quit using tobacco Alcohol intake: current Alcohol intake frequency: few times a month Substance/Drug Use: never Household members: spouse and friend(s) Marital status: Number of children: 0 Current occupational status: unemployed 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, waiting on boards Leisure activites: reading and other Leisure activities details: video games Current gender identity: Female Agree to transfusion: Yes Physical Exam Const: COMMON NORMALS: no acute distress, patient oriented x3, no limitations, alert and well nourished GENERAL APPEARANCE: cooperative ORIENTATION/CONSCIOUSNESS: Yes awake, Yes oriented to person, Yes oriented to place and Yes oriented to time HENMT: COMMON NORMALS: normocephalic, atraumatic, moist oral mucous membranes, oropharynx normal and gingiva normal HEAD & SCALP: normal to inspection, normocephalic and atraumatic FACE & SINUS: other (L sided maxillary tenderness; no swelling appreciated); no erythema, no edema and no fluctuance MOUTH: Normal oral and palatal mucosa present, lip normal and tongue normal TEETH & GINGIVA: Yes fair dentition TEETH & GINGIVA IMAGES: 1. tenderness along gumline with no fluctuance to suggest abscess THROAT: posterior oropharynx normal, tonsils normal, uvula midline and other (floor of mouth is soft; no submandibular/submental swelling) Eye: GENERAL EYE: appearance normal, both eyes and all related structures Neck/C-Spine: COMMON NORMALS: full ROM and no lymphadenopathy GENERAL: Yes normal visual inspection, No anterior neck swelling and No submandibular swelling Resp: COMMON NORMALS: normal respiratory effort and clear to auscultation bilaterally AUSCULTATION: clear to auscultation bilaterally Cardio: COMMON NORMALS: regular rate and regular rhythm RATE: regular rate RHYTHM: regular rhythm Neuro: COMMON NORMALS: patient oriented x3 SENSORIUM/ORIENTATION: Yes alert, Yes oriented to person, Yes oriented to place and Yes oriented to time Course Vital Signs: Vital signs: Vital Signs Temperature 98.1 F 02/04/23 17:37 Pulse Rate 97 02/04/23 17:37 Respiratory Rate 15 02/04/23 17:37 Blood Pressure 134/85 02/04/23 17:37 Pulse Oximetry 99 02/04/23 17:37 Oxygen Delivery Me thod Room Air 02/04/23 17:37 MDM - Dental/Oral Medical Decision Making No evidence for deep space infection. I do not appreciate any drainable abscess at this time. She be started on clindamycin recommend prompt dental follow-up. She was given dental resources. Return to ED precautions given. Discharge Plan Discharge Patient Disposition: Home Clinical Impression: Dental infection Condition: Stable Prescriptions: New clindamycin HCl 300 mg capsule 300 mg PO Q6H 7 Days Qty: 28 0RF Discontinued amoxicillin 500 mg tablet 500 mg PO BID Qty: 14 0RF No Action tamsulosin 0.4 mg capsule 0.4 mg PO DAILY Qty: 30 3RF Rx Instructions: Take 1 tablet daily p.o. until you passed kidney stone. prednisone 20 mg tablet 40 mg PO DAILY 3 Days Qty: 6 0RF escitalopram oxalate [Lexapro] 20 mg tablet 20 mg PO DAILY Focalin 10 mg tablet 10 mg PO DAILY 30 Days Qty: 30 0RF hydrocodone-acetaminophen 5-325 mg tablet 1 tab PO TID PRN (Reason: pain) 7 Days Qty: 21 0RF Vitamin C 500 mg Tablet 500 mg PO DAILY Iron (ferrous sulfate) 325 mg (65 mg iron) Tablet 325 mg PO DAILY metformin 1,000 mg Tablet 1,000 mg PO BID Wellbutrin XL 300 mg Tablet Extended Release 24 Hr 300 mg PO QAM Discharge Orders: Discharge ED (Routine); Ordered 02/04/23 Ordered By: Bertha Barahona Referrals: Nicole Cartagena MD [Primary Care Provider] - Patient Instructions: Dental Abscess (ED), Toothache (ED) Coding Level of Care Code ED Fire Tower Keeper for Kavin Aguayo
[2023-02-04 17:37] VITALS: BP 134/85; PULSE 97; RESP 15; TEMP 36.7; O2SAT 99
[2023-02-04] MEDS: clindamycin 150 mg Capsule 300 MG PO (17:52)
== END 2023-02-04 17:52 | disposition home or self-care (01) ==
PROVIDERS: Emergency Provider Physician Assistant; PCP Family Medicine
DX: K04.7 Periapical abscess without sinus (principal); Z87.891 Personal history of nicotine dependence; E11.9 Type 2 diabetes mellitus without complications
CPT/HCPCS: 99283

== ENCOUNTER → 2023-03-04 09:04 | Outpatient (BNVA) | payer SELFPAY | PROVIDERS: PCP Urology; Visit Provider Family Medicine | DX: Z79.899 Other long term (current) drug therapy (principal) | CPT/HCPCS: 80307 ==

== ENCOUNTER 2023-04-25 19:11 | Emergency (ER) | payer SELFPAY ==
[2023-04-25 19:15] VITALS: BP 143/90; PULSE 84; RESP 18; TEMP 36.7; O2SAT 97; BMI 33.3
[2023-04-25 19:59] LABS: Alanine Aminotransferase 24 U/L (0-33); Albumin Level 4.3 g/dL (3.5-5.2); Alkaline Phosphatase 63 U/L (35-105); Aspartate Amino Transferase 14 U/L (0-32); Blood Urea Nitrogen 16 mg/dL (6-20); Calcium 9.2 mg/dL (8.5-10.5); Carbon Dioxide 25 mmol/L (22-29); Chloride 102 mmol/L (98-107); Globulin 2.9 g/dL (1.3-4.6); Glomerular Filtration Rate 98.3 mL/min (90-130); Glucose 122 mg/dL (65-115); Osmolality Calculated 290 mOsm/kg (285-295); Sodium 139 mmol/L (136-145); Total Bilirubin 0.3 mg/dL (0.15-1.2); Total Protein 7.2 g/dL (6.6-8.7)
--- NOTE | 2023-04-25 20:49 | W.ED.ABDPA2 ---
HPI - Abdominal Pain General: Chief Complaint: Abdominal Pain Stated Complaint: back pain Time Seen by Provider: 04/25/23 20:43 Source: patient Mode of arrival: ambulatory History of Present Illness: This 28-year-old female with a history of kidney stones presents with left flank pain that started this evening. Pain is sharp and located in the left flank. She states that this would be her fourth kidney stone. She sees Dr. Alexander. She denies fever, nausea, vomiting, chest pain, shortness of breath or any pertinent systemic symptoms. Patient is clinically stable though in pain. Associated Symptoms: Denies chills and dysuria Related Data: Date of Last Menstrual Period: 04/25/23 Review of Systems Const: Denies: chills, body aches or change in appetite Eyes: Denies: change in vision or eye discharge ENMT: Denies: throat pain, dental pain or nasal discharge Card: Denies: chest pain or lightheadedness : Denies: dysuria Musc: Denies: neck pain or back pain Neuro: Denies: headache(s) or weakness in extremities Psych: Denies: depression Syed/Lymph: Denies: easy bruising All/Imm: Denies: urticaria, tongue swelling or facial swelling PFSH ED PFSH: Medical History ADD (attention deficit disorder) Anemia Depression Diabetes History of kidney stones Psychiatric care Surgical History History of tonsillectomy and adenoidectomy S/P removal of ovarian cyst Family History Mother Hypertension Father , at age 45 Cancer pancreatic Grandmother Cancer breast Grandfather Stroke Denies family history of CAD (coronary artery disease) Chronic kidney disease (CKD) Social History Smoking and tobacco status: former smoker Quit status (tobacco): has quit using tobacco Alcohol intake: current Alcohol intake frequency: few times a month Substance/Drug Use: never Household members: spouse and friend(s) Marital status: Number of children: 0 Current occupational status: unemployed 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, waiting on [employer] Leisure activites: reading and other Leisure activities details: video games Current gender identity: Female Agree to transfusion: Yes Female Reproductive History: Date of last menstrual period: 04/25/23 Physical Exam Const: COMMON NORMALS: no acute distress, patient oriented x3, no limitations and alert HENMT: COMMON NORMALS: normocephalic HEAD & SCALP: normocephalic Eye: COMMON NORMALS: EOMs intact bilaterally Neck/C-Spine: COMMON NORMALS: full ROM and supple Chest: COMMONS NORMALS: normal inspection of the chest Resp: COMMON NORMALS: normal respiratory effort, No retractions, No use of accessory muscles and clear to auscultation bilaterally AUSCULTATION: clear to auscultation bilaterally Cardio: COMMON NORMALS: regular rate, regular rhythm and No murmurs present (Cardio) RATE: regular rate RHYTHM: regular rhythm GI: COMMON NORMALS: Normal to inspection, nondistended, normoactive bowel sounds present and non-tender OTHER: Left flank tenderness : COMMON NORMALS: Yes no CVA tenderness BLADDER/KIDNEY EXAM: Yes no CVA tenderness OTHER: Left flank tenderness. Back/Pelvis: COMMON NORMALS: no CVA tenderness and no thoracic nor lumbar tenderness Extremity: GENERAL: Yes normal exam except as noted Neuro: COMMON NORMALS: patient oriented x3 and no focal motor deficits SENSORIUM/ORIENTATION: Yes alert Psych: COMMON NORMALS: mental status grossly normal and cooperative Course Vital Signs: Vital signs: Vital Signs Temperature 98.1 F 04/25/23 19:15 Pulse Rate 77 04/25/23 21:12 Respiratory Rate 16 04/25/23 21:12 Blood Pressure 111/87 04/25/23 21:12 Pulse Oximetry 97 04/25/23 21:12 Oxygen Delivery Me thod Room Air 04/25/23 19:15 MDM - Abdominal Pain Medical Decision Making Medical decision making: Patient presents with left flank pain. She has a history of recurrent ureteral stone. CT abdomen/pelvis confirms a 6.4 mm ureteral stone in the left distal ureter. Pain started this evening. There is no vomiting. She is afebrile and shows no signs of systemic infection. Given her urinalysis, she will be covered with antibiotics. I understand Dr. Alexander, the local urologist has retired and there is no one else available in this area. Patient was advised to return if she develops fever, intractable vomiting or worsening pain. She verbalized understanding and agrees with the plan. Lab Data 04/25/23 20:49 04/25/23 19:32 Labs/Radiology: Radiology Impressions Abdomen/Pelvis CT 04/25/23 20:51 IMPRESSION: 1. A 6 x 4 mm partially obstructive calculus in the distal left ureter. 2. Bladder wall thickening suggesting cystitis or incomplete distention. Laboratory Results WBC 9.3 10^3/uL (4.0-10.0) 04/25/23 20:49 RBC 4.20 10^6/uL (4.1-5.3) 04/25/23 20:49 Hgb 10.0 g/dL (11.5-15.3) L 04/25/23 20:49 Hct 32.7 % (37.0-47.0) L 04/25/23 20:49 MCV 77.9 fl (81-99) L 04/25/23 20:49 MCH 23.8 pg (28.0-34.0) L 04/25/23 20:49 MCHC 30.6 g/dL (30.0-36.0) 04/25/23 20:49 RDW 16.5 % (12.1-15.1) H 04/25/23 20:49 Plt Count 346 10^3/cmm (130-400) 04/25/23 20:49 MPV 10.1 fL (7.4-10.4) 04/25/23 20:49 Neut % (Auto) 51.2 % 04/25/23 20:49 Lymph % (Auto) 38.9 % 04/25/23 20:49 [place] % (Auto) 8.0 % 04/25/23 20:49 Eos % (Auto) 1.4 % 04/25/23 20:49 Baso % (Auto) 0.3 % 04/25/23 20:49 Neut # (Auto) 4.78 10^3/uL (1.8-7.7) 04/25/23 20:49 Lymph # (Auto) 3.6 10^3/uL (0.8-4.8) 04/25/23 20:49 [place] # (Auto) 0.8 10^3/uL (0.2-0.9) 04/25/23 20:49 Eos # (Auto) 0.1 10^3/uL (0.0-0.8) 04/25/23 20:49 Baso # (Auto) 0.0 10^3/uL (0.0-0.1) 04/25/23 20:49 Nucleated RBC % (auto) 0 % 04/25/23 20:49 Nucleated RBCs # 0.0 /100WBC 04/25/23 20:49 Sodium 139 mmol/L (136-145) 04/25/23 19:32 Potassium 4.0 mmol/L (3.5-5.1) 04/25/23 19:32 Chloride 102 mmol/L (98-107) 04/25/23 19:32 Carbon Dioxide 25 mmol/L (22-29) 04/25/23 19:32 Anion Gap 16.0 (5-19) 04/25/23 19:32 BUN 16 mg/dL (6-20) 04/25/23 19:32 Creatinine 0.7 mg/dL (0.5-0.9) 04/25/23 19:32 GFR Calculation 98.3 mL/min (90-130) 04/25/23 19:32 Glucose 122 mg/dL (65-115) H 04/25/23 19:32 Calculated Osmolality 290 mOsm/kg (285-295) 04/25/23 19:32 Calcium 9.2 mg/dL (8.5-10.5) 04/25/23 19:32 Total Bilirubin 0.3 mg/dL (0.15-1.2) 04/25/23 19:32 AST 14 U/L (0-32) 04/25/23 19:32 ALT 24 U/L (0-33) 04/25/23 19:32 Alkaline Phosphatase 63 U/L (35-105) 04/25/23 19:32 Total Protein 7.2 g/dL (6.6-8.7) 04/25/23 19:32 Albumin 4.3 g/dL (3.5-5.2) 04/25/23 19:32 Globulin 2.9 g/dL (1.3-4.6) 04/25/23 19:32 Urine Color Yellow (Yellow) 04/25/23 20:49 Urine Appearance Hazy (CLEAR) A 04/25/23 20:49 Urine pH 5 (5-7) 04/25/23 20:49 Ur Specific [place] 1.025 (1.005-1.030) 04/25/23 20:49 Urine Protein Trace (Negative) 04/25/23 20:49 Urine Glucose (UA) Norm (Normal) 04/25/23 20:49 Urine Ketones 1+ (Negative) H 04/25/23 20:49 Urine Blood 3+ (Negative) H 04/25/23 20:49 Urine Nitrate Negative (Negative) 04/25/23 20:49 Urine Bilirubin Neg (Negative) 04/25/23 20:49 Urine Urobilinogen Norm mg/dL (Negative) 04/25/23 20:49 Ur Leukocyte Esterase 1+ (Negative) H 04/25/23 20:49 Urine RBC 25-40 /hpf (0-2) H 04/25/23 20:49 Urine WBC 25-40 /hpf (0-5) H 04/25/23 20:49 Ur Squamous Epith Cells 0-4 /hpf (0-5) H 04/25/23 20:49 Amorphous Sediment Not Reportable 04/25/23 20:49 Urine Bacteria 4+ /hpf (NONE) H 04/25/23 20:49 Discharge Plan Discharge Patient Disposition: Home Clinical Impression: Left ureteral calculus Condition: Stable Prescriptions: New hydrocodone-acetaminophen 5-325 mg tablet 1 tab PO Q6H PRN (Reason: pain) Qty: 20 0RF ciprofloxacin HCl 500 mg tablet 500 mg PO Q12H Qty: 10 0RF No Action tamsulosin 0.4 mg capsule 0.4 mg PO DAILY Qty: 30 3RF Rx Instructions: Take 1 tablet daily p.o. until you passed kidney stone. prednisone 20 mg tablet 40 mg PO DAILY 3 Days Qty: 6 0RF escitalopram oxalate [Lexapro] 20 mg tablet 20 mg PO DAILY hydrocodone-acetaminophen 5-325 mg tablet 1 tab PO TID PRN (Reason: pain) 7 Days Qty: 21 0RF Focalin 10 mg tablet 10 mg PO DAILY 30 Days Qty: 30 0RF Vitamin C 500 mg Tablet 500 mg PO DAILY Iron (ferrous sulfate) 325 mg (65 mg iron) Tablet 325 mg PO DAILY metformin 1,000 mg Tablet 1,000 mg PO BID Wellbutrin XL 300 mg Tablet Extended Release 24 Hr 300 mg PO QAM Discharge Orders: Discharge ED (Routine); Ordered 04/25/23 Ordered By: Yoana Cullen Referrals: Rk Alexander MD [Primary Care Provider] - Patient Instructions: Opioid Safety, Pain Management Activity Restrictions/Additional Instructions: Take ciprofloxacin as prescribed. Maintain adequate fluid intake. Take [place] as needed for pain. Follow-up with your urologist as soon as possible for reevaluation. Return if you develop fever with temperature of 100.4 or more, intractable vomiting, worsening pain or any new concerning symptoms. Coding Level of Care Code ED Traffic Analysis Technician for Kavin Aguayo
--- NOTE | 2023-04-25 20:51 | CTR_ITS ---
PROCEDURE INFORMATION: Exam: CT Abdomen And Pelvis Without Contrast Exam date and time: 04/25/2023 9:20 PM Age: 28 years old Clinical indication: Abdominal pain; Prior surgery; Surgery date: 6+ months; Surgery type: Ovarian cystectomy; Patient HX: C/O left flank pain TECHNIQUE: Imaging protocol: Computed tomography of the abdomen and pelvis without contrast. Radiation optimization: All CT scans at this facility use at least one of these dose optimization techniques: automated exposure control; mA and/or kV adjustment per patient size (includes targeted exams where dose is matched to clinical indication); or iterative reconstruction. REPORTING DATA: Count of CT and Cardiac NM exams in prior 12 months: This patient has received [address] and 0 known cardiac nuclear medicine studies in the 12 months prior to the current study. COMPARISON: CT kidney stone [id number] 12/03/2022 10:57 AM RADIATION DOSE METRICS: Total DLP (mGy-cm): 881.5 FINDINGS: Lungs: The visualized lung bases show no consolidation. Liver: The liver is normal in size and homogeneous density. Gallbladder and bile ducts: The gallbladder is contracted and appears otherwise normal. No calcified gallstones are identified. Pancreas: The pancreas is normal. Spleen: The spleen is normal in size and density. Adrenal glands: The adrenal glands are normal. Kidneys and ureters: See Bones/joints finding. Stomach and bowel: There is no evidence of small bowel or colonic obstruction. There is moderate fecal burden throughout the colon suggestive of constipation. Appendix: A normal appendix is identified. Intraperitoneal space: No free air. No significant fluid collection. Vasculature: There is no abdominal aortic aneurysm. Lymph nodes: No enlarged retroperitoneal or mesenteric lymph nodes. Urinary bladder: There is mild bladder wall thickening. Reproductive: Unremarkable as visualized. Bones/joints: There is fullness of the left renal collecting system and ureter down to the lower pelvis. As 1.3 cm from the left ureteral vesical junction (UVJ), there is a 6 x 4 mm partially obstructive calculus. Soft tissues: Unremarkable. CT/CT kidney stone [id number] IMPRESSION: 1. A 6 x 4 mm partially obstructive calculus in the distal left ureter. 2. Bladder wall thickening suggesting cystitis or incomplete distention.
[2023-04-25 21:02] LABS: Basophils % 0.3 %; Eosinophils # 0.1 10^3/uL (0.0-0.8); Eosinophils % 1.4 %; Hematocrit 32.7 % (37.0-47.0); Lymphocytes # 3.6 10^3/uL (0.8-4.8); Lymphocytes % 38.9 %; Mean Corpuscular HGB Conc 30.6 g/dL (30.0-36.0); Mean Corpuscular Hemoglobin 23.8 pg (28.0-34.0); Mean Corpuscular Volume 77.9 fl (81-99); Mean Platelet Volume 10.1 fL (7.4-10.4); Monocytes # 0.8 10^3/uL (0.2-0.9); Neutrophils # 4.78 10^3/uL (1.8-7.7); Neutrophils % 51.2 %; Nucleated Red Blood Cells % 0 %; Platelet Count 346 10^3/cmm (130-400); Red Cell Distribution Width 16.5 % (12.1-15.1); White Blood Count 9.3 10^3/uL (4.0-10.0)
[2023-04-25 21:12] VITALS: BP 111/87; PULSE 77; RESP 16; O2SAT 97
[2023-04-25 21:13] LABS: Add Urine Culture? Yes; Add Urine Microscopic? YES; Bacteria Urine 4+ /hpf; Bilirubin Urine Neg (Negative); Blood Urine 3+ (Negative); Glucose Urine UA Norm (Normal); Ketones Urine 1+ (Negative); Leukocyte Esterase Urine 1+ (Negative); Nitrate Urine Negative (Negative); Protein Urine Trace (Negative); RBC Urine 25-40 /hpf (0-2); Specific Gravity, Urine 1.025 (1.005-1.030); Squamous Epithelial Cell Urine 0-4 /hpf (0-5); Urine Appearance Hazy (CLEAR); Urine Color Yellow (Yellow); Urobilinogen Urine Norm (Negative); WBC Urine 25-40 /hpf (0-5); pH Urine 5 (5-7)
[2023-04-25] MEDS: ketorolac 30 mg/mL INJ IVP (22:49)
[2023-04-25] MEDS: ciprofloxacin 500 mg Tablet PO (22:50)
[2023-04-25 23:00] VITALS: BP 111/87; PULSE 77; RESP 16; TEMP 36.7; O2SAT 97
== END 2023-04-25 23:01 | disposition home or self-care (01) ==
PROVIDERS: Emergency Medicine; Emergency Provider Family Medicine; PCP Urology
DX: N20.1 Calculus of ureter (principal); Z87.442 Personal history of urinary calculi
CPT/HCPCS: 36415; 74176; 80053; 81001; 85025; 87077; 87086; 87186; 96374; 99285; J1885

== ENCOUNTER → 2023-11-04 07:08 | Outpatient (BNVA) | payer SELFPAY | PROVIDERS: PCP Family Medicine; Visit Provider Family Medicine | DX: E11.9 Type 2 diabetes mellitus without complications (principal) | CPT/HCPCS: 80053; 80061; 82607; 83036 ==

== ENCOUNTER 2023-12-20 20:48 | Emergency (ER) | payer OTHER, SELFPAY ==
[2023-12-20 20:51] VITALS: BP 150/92; PULSE 94; RESP 16; TEMP 36.6; O2SAT 100
--- NOTE | 2023-12-20 20:54 | W.ED.UPPEXIN ---
HPI - Extremity Injury (Upper) General: Chief Complaint: Wound/Laceration Stated Complaint: Left hand lac Time Seen by Provider: 12/20/23 20:53 History of Present Illness: 28-year-old female presents emerged department with complaints of a superficial laceration to her left thumb. She states she accidentally cut it on an aluminum piece of metal that she was attempting to open earlier this evening. She states it has continued to bleed. She denies numbness or tingling to the extremity. She states that it does have a 2 out of 10 throbbing type pain to it and worse if she holds it down to her side. She states her tetanus shot is not up-to-date. She denies numbness or tingling distal to the injury. Review of Systems General: Reports: 10 or more systems reviewed and unremarkable except in HPI and below Skin/Breast: Reports: other (Laceration left thumb) [facility] ED PFSH: Medical History (Updated 12/20/23 @ 21:07 by Gerardo Castillo MD) Attention-deficit hyperactivity disorder, predominantly inattentive type Generalized anxiety disorder with panic attacks Major depressive disorder, recurrent episode, moderate with anxious distress Psychiatric care Diabetes Anemia History of kidney stones Surgical History S/P removal of ovarian cyst History of tonsillectomy and adenoidectomy Family History Mother Hypertension Father , at age 45 Cancer pancreatic Grandmother Cancer breast Grandfather Stroke Denies family history of CAD (coronary artery disease) Chronic kidney disease (CKD) Social History Smoking and tobacco/nicotine status: former use of tobacco/nicotine Quit status (tobacco/nicotine): has quit using Alcohol intake: current Alcohol intake frequency: few times a month Substance/Drug Use: never Household members: spouse and friend(s) Marital status: Number of children: 0 Current occupational status: unemployed 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 Vital signs as documented. No acute distress at present. Alert and oriented-to person, place, time and situation. Head, eyes, ears, nose, mouth, throat: Normocephalic, atraumatic. Pupils-equal, round, reactive to light. No scleral icterus. Normal-appearing external ears. Normal nose, no drainage. Neck: Supple, trachea is midline, no lymphadenopathy, no jugular venous distension, thyromegaly, or carotid bruits. Carotid upstrokes are brisk bilaterally. Lungs: clear to auscultation to all lung [place]. Symmetrical rise and fall of chest, no obvious signs of increased work of breathing at present. Cardiac: Regular rate and rhythm, positive S1, S2. No murmurs, rubs or gallops that I can appreciate Abdomen: Soft, non-tender to palpation, normal active bowel sounds to all quadrants. No palpable masses, no organomegaly and abdominal bruits. Extremities: 2+ pulses in the upper extremities that are equal bilaterally, 2+ pulses in the lower extremities that are equal bilaterally. Non-edematous. Moves all extremities well, sensation to all extremities are noted. Skin: Warm, dry, intact. 2 cm laceration to the lateral aspect of the left thumb, capillary refills less than 3 seconds. Course ED course: Laceration Repair: The patient verbally consents to a wound repair. A time out was performed. Side and sight are verified. Patient identification is verified. The wound was irrigated with sterile saline and cleansed. The wound measures [-*2* cm-] in length by [-*0.25 mm-] in depth. It is approximated using surgical skin adhesive Good approximation is achieved. Hemostasis is maintained. A sterile dressing. Follow-up instructions were provided to the patient. The patient was educated on the signs of infection and return precautions. Vital Signs: Vital signs: Vital Signs Temperature 97.9 F 12/20/23 20:51 Pulse Rate 94 12/20/23 20:51 Respiratory Rate 16 12/20/23 20:51 Blood Pressure 150/92 12/20/23 20:51 Pulse Oximetry 100 12/20/23 20:51 Oxygen Delivery Me thod Room Air 12/20/23 20:51 MDM - Extremity Injury (Upper) Medical Decision Making Physical exam completed and documented, we have cleansed the wound will provide an updated tetanus and I have applied surgical skin adhesive and have advised the patient she can follow-up with her primary care provider as needed. Medical Records I reviewed the patient's medical records. No radiology studies performed this visit Discharge Plan Discharge Patient Disposition: Home Clinical Impression: Laceration of left thumb Condition: Stable Prescriptions: No Action bupropion HCl [Wellbutrin SR] 100 mg tablet sustained-release 12 hr 200 mg PO BID Qty: 60 3RF Rx Instructions: Take two tablets twice per day, last dose prior to 4 pm lorazepam [Ativan] 1 mg tablet 1 mg PO DAILY PRN (Reason: anxiety/panic attacks) Qty: 30 1RF Rx Instructions: May take one tablet daily as needed for anxiety/panic attacks dexmethylphenidate 20 mg capsule,ER biphasic 50-50 20 mg PO QAM 30 Days Qty: 30 0RF Discharge Orders: Discharge ED (Routine); Ordered 12/20/23 Ordered By: Gerardo Castillo Referrals: Nicole Cartagena MD [Primary Care Provider] - Discharge Diet: Usual diet Discharge Activity: Resume usual activity Patient Instructions: Opioid Safety, Pain Management Activity Restrictions/Additional Instructions: Activity Restrictions/Additional Instructions: Thank you for choosing [facility] for your healthcare needs today. Please realize that you were seen in the Emergency Department and that we are providing you with an emergency medical screening exam and this may not be a complete and all inclusive of all the testing and or medical work-up that you may need to determine your ailment or severity of your illness. It is very important that you follow-up as instructed with your Primary care provider or Specialist for additional evaluation and to discuss your medical treatment plan. You may return to the Emergency Department should you have concerns or if your condition changes or worsens in any way. Coding Level of Care Code ED Artistic Director for Kavin Aguayo
[2023-12-20] MEDS: tetanus-dipt-pertussis 0.5 mL SDV IM (21:07)
== END 2023-12-20 21:11 | disposition home or self-care (01) ==
PROVIDERS: Emergency Provider Internal Medicine; PCP Family Medicine
DX: S61.012A Laceration without foreign body of left thumb without damage to nail, initial encounter (principal); Z87.891 Personal history of nicotine dependence; E11.9 Type 2 diabetes mellitus without complications; W26.8XXA Contact with other sharp object(s), not elsewhere classified, initial encounter; Z23 Encounter for immunization
CPT/HCPCS: 12001; 90471; 90715; 99283

== ENCOUNTER → 2024-01-16 10:49 | Outpatient (BNVA) | payer OTHER, SELFPAY | PROVIDERS: PCP Family Medicine; Visit Provider Emergency Medicine | DX: R05.9 Cough, unspecified (principal) | CPT/HCPCS: 87400; 87426 ==

== ENCOUNTER → 2024-02-16 16:06 | Outpatient (BNVA) | payer OTHER, SELFPAY | PROVIDERS: PCP Family Medicine; Visit Provider Family Medicine Adult Medicine | DX: D64.9 Anemia, unspecified (principal); E11.9 Type 2 diabetes mellitus without complications; F33.1 Major depressive disorder, recurrent, moderate; F90.0 Attention-deficit hyperactivity disorder, predominantly inattentive type | CPT/HCPCS: 83036; 84443; 85025 ==

== ENCOUNTER → 2024-03-24 11:10 | Outpatient (BNVA) | payer OTHER, SELFPAY | PROVIDERS: PCP Family Medicine; Visit Provider Nurse Practitioner Women's Health | DX: Z01.419 Encounter for gynecological examination (general) (routine) without abnormal findings (principal) | CPT/HCPCS: 87624 ==

== ENCOUNTER → 2024-07-25 07:15 | Outpatient (BNVA) | payer OTHER, SELFPAY | DX: E11.9 Type 2 diabetes mellitus without complications (principal) | CPT/HCPCS: 80053; 83036 ==

== ENCOUNTER → 2024-10-02 11:37 | Outpatient (BNVA) | payer OTHER, SELFPAY | PROVIDERS: Visit Provider Emergency Medicine | DX: R05.9 Cough, unspecified (principal); R09.81 Nasal congestion | CPT/HCPCS: 87400; 87426 ==

== ENCOUNTER → 2024-11-20 13:27 | Outpatient (BNVA) | payer OTHER, SELFPAY | DX: E11.9 Type 2 diabetes mellitus without complications (principal) | CPT/HCPCS: 83036 ==

== ENCOUNTER → 2024-12-06 17:35 | Outpatient (BNVA) | payer OTHER, SELFPAY | PROVIDERS: Visit Provider Emergency Medicine | DX: N39.0 Urinary tract infection, site not specified (principal) | CPT/HCPCS: 81000; 87086 ==

== ENCOUNTER → 2025-01-23 16:29 | Outpatient (BNVA) | payer OTHER, SELFPAY | PROVIDERS: Visit Provider Emergency Medicine | DX: R50.9 Fever, unspecified (principal) | CPT/HCPCS: 87400 ==